=== PATIENT | male | born 1990 | race Caucasian/White ===

== ENCOUNTER 2018-09-18 21:21 | Emergency (ER) | payer MEDICAID ==
[~2018-09-18] VITALS: Ht 180.3 cm; Wt 62.2 kg
[2018-09-18] MEDS ORDERED: ACETAMINOPHEN 500 MG TABLET PO ONE (21:30)
[2018-09-18] MEDS ORDERED: IBUPROFEN 200 MG TABLET PO ONE (21:30)
[2018-09-18] MEDS ORDERED: ACETAMINOPHEN 500 MG TABLET ONE (21:41)
[2018-09-18] MEDS ORDERED: IBUPROFEN 200 MG TABLET ONE (21:41)
[2018-09-18 22:25] LABS: RAPID INFLUENZA A Negative (Negative); RAPID INFLUENZA B Negative (Negative)
[2018-09-18 22:30] VITALS: BP 124/69
== END 2018-09-18 22:39 | disposition home or self-care (01) ==
LOC: ED 22:11
DX: J06.9 Acute upper respiratory infection, unspecified (principal); F17.200 Nicotine dependence, unspecified, uncomplicated
CPT/HCPCS: 71045; 87400; 99284

== ENCOUNTER 2018-12-20 18:51 | Emergency (ER) | payer MEDICAID ==
[~2018-12-20] VITALS: Ht 170.2 cm; Wt 58.5 kg
[2018-12-20 19:08] VITALS: BP 152/103
--- NOTE | 2018-12-20 20:14 | NUR ---
NO ANSWER FROM [facility] @ 20:10
--- NOTE | 2018-12-20 20:18 | NUR ---
NA X2
--- NOTE | 2018-12-20 20:24 | NUR ---
NO ANSWER @ 20:10, 20:17, OR 20:26
== END 2018-12-20 20:29 | disposition left against medical advice (07) ==
LOC: ED 20:20
DX: K08.89 Other specified disorders of teeth and supporting structures (principal)
CPT/HCPCS: 99281